=== PATIENT | male | born 1960 | race Caucasian/White ===

== ENCOUNTER 2020-02-25 17:33 | Observation (INO) ==
--- NOTE | 2020-02-25 19:11 | Surgery Consultation ---
Date of Consultation February 25, 2020 Assessment & Plan (1) Acute cholecystitis due to biliary calculus: pt is a 59 year-old male who presents to Er with 4 days history RUQ pain, IMP: acute cholecystitis, cholelithiasis, Plan, I recommend to admit pt to hospital , IV fluid, antibiotic, control pain, go to OR tomorrow, for laparoscopic cholecystectomy, possible open or cholangiogram, D/W benefits, risks and alternatives of the surgery, the risks - infection, bleeding injury CBD, injury other organs,may need ERCP, pt understood, he agrees with the surgery, I answered all questions, D/W ER attending, Present on Admission?: Yes History of Present Illness History of Present Illness CC: RUQ pain HPI History of Present Illness: 59yowm with h/o GERD is seen today for ongoing abdominal pain since Saturday. On 0130 AM Saturday morning, patient woke up with generalized muscle aches with bloating and nausea. He felt sick all night and couldn't get comfortable. He was given an antinausea medication on Saturday morning at [facility] and he started to feel better and by Saturday he started to notice some improvement as far as systemic symptoms and severity of pain is concerned. Nausea started to improve with the anti nausea medication. However he followed with with [facility] yesterday for ongoing abdominal pain which has now localized to the right lower quadrant. Pain is crampy in character and constant. Waxes and wanes from 2-4/10 pain. Associated with loose brown watery stools 2-3x/day. No associated melena or hematochezia. They recommended that he go to ER for evaluation CT scan and he refused, d/t concerns of cost and COVID-19 exposure. As an alternative he called us to see if we could do an outpatient work up. We discussed his diet, he's been trying to eat a bland diet. He's exchanged tea for coffee. On Saturday he limited PO intake, only eating chicken Ramen Noodles. On Saturday, he had some chicken soup. He's been drinking without issues. Yesterday he started eating Cinnamon toast. He's been able to keep this stuff down. No vomiting noted. He denies any fevers, chills, SOB, cough, CP, palpitations, blood in urine or hematuria. I ( Gregory Sinha MD ) got a call for consult acute cholecystitis, I reviewed pt's H/P, labs, CT scan with pt. Allergies Allergy/AdvReac Type Severity Reaction Status Date / Time No Known Drug Allergies Allergy Verified 02/25/20 10:45 [id number] Allergy Unknown Uncoded 02/25/20 10:45 N Allergy Unknown Uncoded 02/25/20 10:45 Home Medications Medication Instructions Recorded Confirmed Type omeprazole 20 mg capsule,delayed 20 mg PO DAILY #30 cap 01/28/20 02/25/20 Rx release famotidine 40 mg tablet 40 mg PO DAILY #90 tab 02/10/20 02/25/20 Rx Patient History Medical History (Updated 02/25/20 @ 19:12 by Gregory Sinha MD) Dyslipidemia GERD (gastroesophageal reflux disease) Health care maintenance Hyperglycemia Sensorineural hearing loss of both ears Tinnitus, bilateral Surgical History No history of previous surgery Family History Uncle Prostate cancer Mother Myocardial infarction Grandmother (Maternal) Myocardial infarction Heart disease Congestive heart disease Sister Ovarian cancer Denies family history of Breast cancer Colorectal cancer Social History Smoking Status: Never smoker Hx Alcohol Use: No Hx Substance Use: No Communication Ability: Effective Visual Impairment: No Limitations Hearing Ability: Normal marital status: Current Living Situation: Spouse current occupational status: employed 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[employer], Feels Safe at Home: Yes Childhood Exposure to Second-Hand Smoke: No Dental Care, Regularly: Yes Physical Activity Frequency: Does not Exercise Seatbelt Use: always Review of Systems Review of Systems: All systems reviewed & are unremarkable except as noted in HPI & below Constitutional: as per Subjective / HPI Eyes: as per Subjective / HPI Ear, Nose, Mouth, Throat: as per Subjective / HPI and + hearing loss Respiratory: as per Subjective / HPI Cardiovascular: as per Subjective / HPI Additional Comments: dyslipidemia Gastrointestinal: as per Subjective / HPI GERD Genitourinary: + as per Subjective / HPI Musculoskeletal: as per Subjective / HPI Integumentary: as per Subjective / HPI Neurologic: as per Subjective / HPI Psychiatric: as per Subjective / HPI Endocrine: as per Subjective / HPI Hematologic / Lymphatic: as per Subjective / HPI Allergy / Immunological: as per Subjective / HPI Physical Exam Constitutional: WD/WN, vitals as above well developed and well nourished Eyes: PERRL, conjunctivae normal, anicteric sclerae ENMT: external ear and nose normal, oropharynx normal Ears: + hearing impairment Neck: trachea midline, no thyromegaly Respiratory: normal respiratory effort, lungs clear to auscultation normal respiratory effort Cardiovascular: RRR, no murmur, no edema Rate/Rhythm: regular rate and regular rhythm Heart Sounds: normal S1 and normal S2 Gastrointestinal (Abdomen): Percussion/Palpation: + abdomen tender and abdomen soft mild tenderness at RUQ, no rebound pain, no distend Musculoskeletal: no cyanosis or clubbing, extremities motor strength 5/5 Skin: no rashes, warm and dry Neurologic: awake Psychiatric: Orientation: alert and oriented x 3 Results & Data ([facility]) Vital Signs (Past 12 Hours) Vital Signs Temp Pulse Resp BP Pulse Ox 02/25/20 17:34 36.9 C 73 16 158/[address] SCAN OF THE ABDOMEN AND PELVIS WITH IV CONTRAST CLINICAL HISTORY: Right lower quadrant abdominal pain. COMPARISON STUDY: No priors. TECHNIQUE: Following the IV administration of 94 cc of Optiray 320, CT scan of the abdomen and pelvis is performed from the lung bases to the proximal femora. Images are reviewed in the axial, sagittal, and coronal planes. IV contrast was administered without complication. A dose lowering technique was utilized adhering to the principles of ALARA. CT DOSE: 1092.58 mGycm FINDINGS: Lung bases: The heart is normal in size and without pericardial effusion. The lung bases are clear noting mild bibasilar atelectasis. There is a small hiatal hernia. Liver: The contrast-enhanced liver is normal in size, contour, and attenuation. There is no intrahepatic biliary ductal dilatation. The hepatic veins and portal veins are patent. Gallbladder: There is a gallstone within the region of the gallbladder neck measuring 2.3 cm. The gallbladder is distended. The gallbladder wall is thickened and edematous and there is pericholecystic inflammation. Findings are consistent with acute cholecystitis. Spleen: Normal in size and attenuation. Pancreas: Unremarkable. Adrenal glands: Unremarkable. Kidneys: The contrast enhanced kidneys are normal in size and without hydronephrosis. The kidneys enhance symmetrically. Scattered subcentimeter cortical hypodensities likely represent cysts but are too small for definitive characterization. Abdominal vasculature: The abdominal aorta is normal in course and caliber noting mild atherosclerotic calcification. Bowel: There is no bowel obstruction. Enteric contrast reaches the rectum. The appendix is well-visualized and normal. Peritoneum: There is no intraperitoneal free air or abdominal ascites. Lymphadenopathy: None. Pelvic viscera: The prostate gland is mildly enlarged and heterogeneous. The bladder is normal as imaged. There is a fat-containing right inguinal hernia. Skeletal structures: No lytic or blastic lesions are seen. IMPRESSION: 1. Cholelithiasis with acute cholecystitis. Surgical assessment is advised. 2. There is no intra or extrahepatic biliary ductal dilatation.
[2020-02-25] MEDS ORDERED: ONDANSETRON INJ 2 MG/ML 2 ML VIAL IV PRN (19:32)
--- NOTE | 2020-02-25 21:41 | Emergency Department Note ---
Impression & Plan Acute cholecystitis due to biliary calculus ED Provider Note INFORMANT: Patient ED PROVIDER(S): Ha Menchaca MD CHIEF COMPLAINT: Abdominal pain PLAN: Disposition: Admitted Condition: Good Outpatient prescription management: none Referral: None MEDICAL DECISION MAKING: Patient presented emergency department with an abnormal CT scan. His GI symptoms resulted in blood work and CT imaging being done today as an outpatient. These did not reveal any abnormal findings in the blood work however his CT imaging was concerning for acute cholecystitis. The patient declined analgesia. A lipase was checked and was normal. Covid testing ordered. He had a consultation placed with Dr. Sinha of general surgery. He was evaluated in the ER by surgery and admission was recommended. The patient was admitted by Dr. Sinha. Triage Nursing notes reviewed and agree them. Prior medical records reviewed regarding his blood work and his outpatient imaging. Vital Signs: reviewed and remarkable for no significant abnormalities Differential diagnosis: Cholecystitis, appendicitis, testicular torsion, infections, diverticulitis, UTI, obstruction, mesenteric ischemia, aortic pathology, inflammatory bowel disease, renal colic, PUD, pancreatitis, biliary pathology, hernia, volvulus, constipation, as well as other pathologies. Diagnostics interpreted by me: Imaging studies: CT scan of the abdomen pelvis was reviewed. Images done reveal a stone in the gallbladder neck as well as pericholecystic inflammation and wall thickening. Concerning for cholecystitis. Consultation(s): General surgery HPI: The patient is a 59 year old male who presents to the Emergency Room with complaints of abdominal pain. This started 4 days ago and is located on the right side. The patient also notes the following associated symptoms, intermittent nausea, postprandial discomfort. The patient has found no relieving factors. Current pain is rated as 3/10. Outpatient imaging was done and it was concerning for cholecystitis. Pt denies LOC, headache, fevers, chills, diaphoresis, visual changes, neck pain, chest pain, breathing difficulties, vomiting, back pain, melena, hematochezia, urinary symptoms, numbness, weakness, lymphadenopathy, rash, or other complaints. ROS: See above HPI for pertinent positives & negatives. A total of 10 systems reviewed and were otherwise negative. PAST MEDICAL HISTORY:See Below , GERD PAST SURGICAL HISTORY:See Below, FAMILY HISTORY:See Below SOCIAL HISTORY:See Below, HOME MEDICATIONS:See Below ALLERGIES:See Below VITALS:See Below PHYSICAL EXAMINATION: GENERAL: Awake, alert, well-appearing, in no distress HENT: Normocephalic, atraumatic. Oropharynx unremarkable. EYES: Normal conjunctiva. Sclera non-icteric. NECK: Inspection normal. Non-tender. Supple. No nuchal rigidity. FROM. No masses. RESPIRATORY: Clear to auscultation. No wheezes. No rales. Normal respiratory effort. CARDIAC: Normal rate. Normal rhythm. No murmurs. No rubs. Extremities warm and well perfused. Pulses equal. No JVD. GI: Soft, non-distended. Right upper quadrant tenderness to palpation. Positive Tracey sign. No rebound or guarding. No masses. RECTAL: Deferred. MUSCULOSKELETAL: Atraumatic. Chest examination reveals no tenderness. The back is symmetrical on inspection without obvious abnormality. There is no CVA tenderness to palpation. No joint edema. LOWER EXTREMITIES: Calves are equal size bilaterally and non-tender. No edema. No discoloration. NEURO: Normal sensorium. No sensory or motor deficits noted. SKIN: No rash or jaundice noted. Ha Menchaca MD Past Med/Surg History Medical History (Updated 02/25/20 @ 21:38 by Ha Menchaca MD) Dyslipidemia GERD (gastroesophageal reflux disease) Health care maintenance Hyperglycemia Sensorineural hearing loss of both ears Tinnitus, bilateral Surgical History No history of previous surgery Family History Uncle Prostate cancer Mother Myocardial infarction Grandmother (Maternal) Myocardial infarction Heart disease Congestive heart disease Sister Ovarian cancer Denies family history of Breast cancer Colorectal cancer Social History Smoking Status: Never smoker Hx Alcohol Use: No Hx Substance Use: No Communication Ability: Effective Visual Impairment: No Limitations Hearing Ability: Normal marital status: Current Living Situation: Spouse current occupational status: 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 Verified 02/25/20 19:28 [id number] Allergy Unknown . Uncoded 02/25/20 19:28 Home Meds Home Medications Medication Instructions Recorded Confirmed famotidine 40 mg PO HS 02/25/20 02/25/20 omeprazole 20 mg PO QAM 02/25/20 02/25/20 Results & Data (ED) Vital Signs Vital Signs - 24 hr 02/25/20 17:34 Temperature 36.9 C Temperature Source Skin Pulse Rate 73 Respiratory Rate 16 Blood Pressure 158/84 H Blood Pressure Mean 108 Pulse Oximetry 98 Oxygen Delivery Method Room Air Sepsis Recent Fever Within 48 Hours No Sepsis New/Unexplained Change in Mental Status N/A Sepsis Action Taken by Nursing No Action Required Laboratory Data Lab Results 02/25/20 02/25/20 02/25/20 Range/Units 18:42 Unknown Unknown Lipase 93 (73-393) U/L COVID-19 Eval Order Covid19 [facility]Now [facility] SARS-CoV-2, RNA, NAAT NEGATIVE (NEGATIVE) Discharge Plan Visit Data Chief Complaint: Abdominal Pain Stated Complaint: ABDOMINAL PAIN ED Provider: Ha Menchaca Discharge Problem: Acute cholecystitis due to biliary calculus Patient Disposition: Admitted As Inpatient Discharge Instructions Interventions: ED Discharge Assessment Last Done: 02/25/20 20:41 Forms Stand Alone Forms: [facility] Prescriptions Prescriptions: No Action famotidine 40 mg tablet 40 mg PO HS RF: 0 omeprazole 20 mg capsule,delayed release(DR/EC) 20 mg PO QAM RF: 0 Referrals Referrals: Pro,Dominic Sawant MD [Primary Care Provider] -
[2020-02-25] MEDS ORDERED: HYDROmorphone INJ 0.5 MG/0.5 ML SYR IV PRN (21:53)
[2020-02-25] MEDS ORDERED: oxyCODONE/ACETAMINOPHEN 5mg/325mg TAB PO PRN (21:53)
[2020-02-25] MEDS ORDERED: PIPERACILL/TAZOBAC CONSULT ACTIVE PRN (21:53)
[2020-02-25] MEDS: FAMOTIDINE 40 MG TABLET PO SCH (22:04)
[2020-02-25] MEDS ORDERED: PIPERACILLIN/TAZOBACTAM 4.5 GM in DEXTROSE 5% 100 ML IV ONE (22:15)
[2020-02-25 22:49] LABS: Basophils # (auto) 0.02 K/uL (0-0.2); Basophils % (auto) 0.3 %; Eosinophils # (auto) 0.21 K/uL (0-0.5); Eosinophils % (auto) 2.6 %; Hematocrit (blood only) 39.4 % (42-52); Hemoglobin 13.1 g/dL (14.0-18.0); Immature Granulocytes # (auto) 0.04 K/uL (0.00-0.02); Immature Granulocytes % (auto) 0.5 %; Lymphocytes # (auto) 2.92 K/uL (1.2-3.4); Lymphocytes % (auto) 36.5 %; Mean Corpuscular Hemoglobin 28.7 pg (25-34); Mean Corpuscular Hgb Conc 33.2 g/dL (32-36); Mean Corpuscular Volume 86.2 fL (80-100); Mean Platelet Volume 9.9 fL (7.4-10.4); Monocytes # (auto) 0.56 K/uL (0.11-0.59); Neutrophils # (auto) 4.24 K/uL (1.4-6.5); Neutrophils % (auto) 53.1 %; Platelet Count 236 K/uL (130-400); RDW Coefficient of Variation 14.1 % (11.5-14.5); RDW Standard Deviation 44.4 fL (36.4-46.3); Red Blood Count 4.57 M/uL (4.7-6.1); White Blood Count 7.99 K/uL (4.8-10.8)
[2020-02-25] MEDS: LACTATED RINGER'S 1,000 ML IV SCH (23:09)
[2020-02-25 23:13] LABS: Albumin Level 3.5 gm/dl (3.4-5.0); BUN Creatinine Ratio 15.1 (10-20); Bilirubin,Total 0.6 mg/dl (0.2-1); Creatinine Clr Calc Pharmacy 117.4 ml/min; Est GFR (African American) 109.7; Est GFR (Non-African American) 94.7; Globulin 3.6 gm/dl (2.5-4.0); Potassium 3.5 mmol/L (3.5-5.1); Total Protein 7.1 gm/dl (6.4-8.2)
[2020-02-26] MEDS: PIPERACILLIN/TAZOBACTAM 4.5 GM in DEXTROSE 5% 100 ML IV SCH ×3 (02:15→17:40)
[2020-02-26 06:18] LABS: Basophils # (auto) 0.04 K/uL (0-0.2); Basophils % (auto) 0.5 %; Eosinophils # (auto) 0.26 K/uL (0-0.5); Eosinophils % (auto) 3.4 %; Hematocrit (blood only) 42.6 % (42-52); Hemoglobin 13.9 g/dL (14.0-18.0); Immature Granulocytes # (auto) 0.02 K/uL (0.00-0.02); Immature Granulocytes % (auto) 0.3 %; Lymphocytes # (auto) 2.31 K/uL (1.2-3.4); Lymphocytes % (auto) 30.5 %; Mean Corpuscular Hemoglobin 28.7 pg (25-34); Mean Corpuscular Hgb Conc 32.6 g/dL (32-36); Mean Corpuscular Volume 87.8 fL (80-100); Mean Platelet Volume 9.9 fL (7.4-10.4); Monocytes # (auto) 0.66 K/uL (0.11-0.59); Monocytes % (auto) 8.7 %; Neutrophils # (auto) 4.29 K/uL (1.4-6.5); Neutrophils % (auto) 56.6 %; Platelet Count 257 K/uL (130-400); RDW Coefficient of Variation 14.2 % (11.5-14.5); RDW Standard Deviation 45.9 fL (36.4-46.3); Red Blood Count 4.85 M/uL (4.7-6.1); White Blood Count 7.58 K/uL (4.8-10.8)
[2020-02-26 06:52] LABS: Albumin Level 3.5 gm/dl (3.4-5.0); BUN Creatinine Ratio 11.5 (10-20); Creatinine Clr Calc Pharmacy 97.5 ml/min; Est GFR (African American) 89.2; Potassium 3.8 mmol/L (3.5-5.1)
[2020-02-26 06:55] LABS: Albumin Globulin Ratio 0.8 (0.9-2); Bilirubin,Total 0.9 mg/dl (0.2-1); Globulin 4.1 gm/dl (2.5-4.0); Total Protein 7.6 gm/dl (6.4-8.2)
[2020-02-26] MEDS: PANTOprazole 40 MG TAB PO SCH (07:50)
--- NOTE | 2020-02-26 08:42 | Anesthesiology Consultation ---
Date of Service February 26, 2020 Covid 19 negative on 02/25/20. Assessment & Plan (1) Encounter for pre-operative examination: Chart Review Chart Review: Acceptable Risk for Surgery and Patient NOT seen in Pre Admission Testing Consults Requested none History Surgery Operation Date: 02/26/20 09:00 Proposed Procedures p Laparoscopic Cholecystectomy - Gregory Sinha MD Height/Weight Height: 5 ft 11 in Weight: 113.852 kg Allergies Allergy/AdvReac Type Severity Reaction Status Date / Time No Known Drug Allergies Allergy . Verified 02/25/20 19:28 [id number] Allergy Unknown . Uncoded 02/25/20 19:28 Medications Home Medications Medication Instructions Recorded Confirmed Last Taken famotidine 40 mg PO HS 02/25/20 02/25/20 02/24/20 omeprazole 20 mg PO QAM 02/25/20 02/25/20 02/25/20 Active Medications Generic Name Dose Route Start Last Admin Trade Name Freq PRN Reason Stop Dose Admin Famotidine 40 mg 02/25/20 21:53 02/25/20 22:04 Famotidine 40 Mg Tablet PO 03/26/20 21:52 Not Given HS BRIDGET Lactated Ringer's 1,000 mls @ 80 mls/hr 02/25/20 21:53 02/25/20 23:09 Lr IV 03/26/20 21:52 80 mls/hr .[id number] BRIDGET Administration Piperacillin Sod/Tazobactam 120 mls @ 30 mls/hr 02/26/20 02:00 02/26/20 09:03 Sod 4.5 gm/ Dextrose IV 03/07/20 01:59 30 mls/hr Q8H BRIDGET Administration Protocol Pantoprazole Sodium 40 mg 02/26/20 09:00 02/26/20 07:50 Pantoprazole 40 Mg Tab PO 03/27/20 08:59 Not Given QAM BRIDGET NPO Date Last Intake of Fluids: 02/25/20 Date Last Intake of Solids: 02/25/20 Past Medical History Medical History Dyslipidemia GERD (gastroesophageal reflux disease) Health care maintenance Hyperglycemia Sensorineural hearing loss of both ears Tinnitus, bilateral Past Family History Family History Uncle Prostate cancer Mother Myocardial infarction Grandmother (Maternal) Myocardial infarction Heart disease Congestive heart disease Sister Ovarian cancer Denies family history of Breast cancer Colorectal cancer Past Surgical History Surgical History No history of previous surgery Social History Smoking Status: Never smoker Hx Alcohol Use: No Hx Substance Use: No Physical Exam Vital Signs Last Vital Signs Temp 36.7 C 02/26/20 07:14 Pulse 62 02/26/20 07:14 Resp 16 02/26/20 07:14 BP 125/77 02/26/20 07:14 Pulse Ox 97 02/26/20 07:14 Testing Laboratory Results 02/26/20 05:53 02/26/20 05:53 Electrocardiogram Date: 02/26/20 Findings: + NSR @ (69), + LVH and + RBBB (incomplete) Other Testing CT SCAN OF THE ABDOMEN AND PELVIS WITH IV CONTRAST CLINICAL HISTORY: Right lower quadrant abdominal pain. COMPARISON STUDY: No priors. TECHNIQUE: Following the IV administration of 94 cc of Optiray 320, CT scan of the abdomen and pelvis is performed from the lung bases to the proximal femora. Images are reviewed in the axial, sagittal, and coronal planes. IV contrast was administered without complication. A dose lowering technique was utilized adhe ring to the principles of ALARA. CT DOSE: 1092.58 mGycm FINDINGS: Lung bases: The heart is normal in size and without pericardial effusion. The lung bases are clear noting mild bibasilar atelectasis. There is a small hiatal hernia. Liver: The contrast-enhanced liver is normal in size, contour, and attenuation. There is no intrahepatic biliary ductal dilatation. The hepatic veins and portal veins are patent. Gallbladder: There is a gallstone within the region of the gallbladder neck measuring 2.3 cm. The gallbladder is distended. The gallbladder wall is thickened and edematous and there is pericholecystic inflammation. Findings are consistent with acute cholecystitis. Spleen: Normal in size and attenuation. Pancreas: Unremarkable. Adrenal glands: Unremarkable. Kidneys: The contrast enhanced kidneys are normal in size and without hydronephrosis. The kidneys enhance symmetrically. Scattered subcentimeter cortical hypodensities likely represent cysts but are too small for definitive characterization. Abdominal vasculature: The abdominal aorta is normal in course and caliber not ing mild atherosclerotic calcification. Bowel: There is no bowel obstruction. Enteric contrast reaches the rectum. The appendix is well-visualized and normal. Peritoneum: There is no intraperitoneal free air or abdominal ascites. Lymphadenopathy: None. Pelvic viscera: The prostate gland is mildly enlarged and heterogeneous. The bladder is normal as imaged. There is a fat-containing right inguinal hernia. Skeletal structures: No lytic or blastic lesions are seen. IMPRESSION: 1. Cholelithiasis with acute cholecystitis. Surgical assessment is advised. 2. There is no intra or extrahepatic biliary ductal dilatation. ACT 112: Negative or not required by law. Electronically signed by: Johnny Moreno M.D. 02/25/2020 5:20 PM Dictated: 02/25/20 1717
[2020-02-26] MEDS ORDERED: GLYCOPYRROLATE 0.2 MG/ML VIAL ONE ×2 (09:56→13:05)
[2020-02-26] MEDS ORDERED: LIDOCAINE 2% 2 ML VIAL/AMP(20MG/ML) INFIL ONE (09:56)
[2020-02-26] MEDS ORDERED: NEOSTIGMINE METHYLSULFATE 5 MG/5 ML SYR ONE (09:56)
[2020-02-26] MEDS ORDERED: ONDANSETRON INJ 2 MG/ML 2 ML VIAL ONE (09:56)
[2020-02-26] MEDS ORDERED: DEXAMETHASONE SOD INJ 4 MG/ML VIAL ONE (09:56)
[2020-02-26] MEDS ORDERED: fentaNYL citrate 100 MCG/2 ML VIAL ONE ×2 (09:56→11:48)
[2020-02-26] MEDS ORDERED: PROPOFOL IV EMULSION 10 MG/ML 20 ML VIAL IV ONE (09:56)
[2020-02-26] MEDS ORDERED: MIDAZOLAM HCL 1 MG/ML 2ML VIAL ONE (09:57)
[2020-02-26] MEDS ORDERED: ceFAZolin 2000MG 2,000 MG/15 ML SYR IV SCH (10:00)
--- NOTE | 2020-02-26 10:03 | History & Physical Bridge Note ---
Date of Service February 26, 2020 History & Physical Bridge Note I have examined the patient, reviewed the History & Physical and in the interval since the performance of the History & Physical I have noted the following changes of clinical significance: no changes noted
[2020-02-26] MEDS ORDERED: LARYING-O-JET KIT (LTA) ONE (11:01)
[2020-02-26] MEDS ORDERED: ROCURONIUM BROMIDE 10 MG/ML 5 ML VIAL IV ONE ×2 (11:01→12:22)
[2020-02-26] MEDS ORDERED: LIDOCAINE 1% LOCAL 20 ML VIAL ONE (11:03)
[2020-02-26] MEDS ORDERED: BUPIVACAINE 0.5 % 5 MG/1 ML MPF 30ML VIAL ONE (11:03)
[2020-02-26] MEDS ORDERED: HYDROmorphone INJ 1 MG/ML SYRINGE IV PRN (11:15)
[2020-02-26] MEDS ORDERED: ATROPINE SULFATE 0.1 MG/ML 10ML SYR IV PRN (11:15)
[2020-02-26] MEDS ORDERED: ONDANSETRON INJ 2 MG/ML 2 ML VIAL IV PRN (11:15)
[2020-02-26] MEDS ORDERED: ePHEDrine sulfate 50 MG/ML AMP IV PRN (11:15)
--- NOTE | 2020-02-26 12:10 | Electrocardiogram Report ---
Test Reason : Blood Pressure : / mmHG Vent. Rate : 069 BPM Atrial Rate : 069 BPM P-R Int : 176 ms QRS Dur : 110 ms QT Int : 422 ms P-R-T Axes : 017 -31 001 degrees QTc Int : 452 ms Normal sinus rhythm Left axis deviation Incomplete right bundle branch block Moderate voltage criteria for LVH, may be normal variant Abnormal ECG No previous ECGs available Confirmed by Dominic Murillo ([id number]) on 02/26/2020 12:10:17 PM Referred By: REFERRED SELF Confirmed By:Dominic Murillo
[2020-02-26] MEDS ORDERED: KETOROLAC 30 MG/ML VIAL ONE (13:08)
--- NOTE | 2020-02-26 13:10 | Post Operative Brief Note ---
Immediate Post Op Note v1 Date of Surgery February 26, 2020 Pre & Post Diagnosis Operation Date: 02/26/20 09:00 Pre-Op Diagnosis: Cholelithiasis with acute cholecystitis Post-Op Diagnosis: Cholelithiasis with acute cholecystitis I identified the patient and participated in the time-out.: Yes Procedure Operation Date: 02/26/20 09:00 Actual Procedures p Laparoscopic Cholecystectomy - Gregory Sinha MD Surgeon Gregory Sinha MD [employer] Template [employer] ARMANDO Fletcher Estimated Blood Loss 20 Findings Consistent with Post-Op Diagnosis significant inflammation on gallbladder wall, Fluids 800ml Specimens gallbladder Anesthesia Type General Complications none Disposition Accompanied Patient To Recovery: Yes Disposition: Recovery Room Overlapping Procedure I was immediately available: during the entire case.
[2020-02-26] MEDS ORDERED: BACITRACIN OINT 15 GM TUBE ONE (13:14)
--- NOTE | 2020-02-26 13:41 | Operative Report (OR) ---
DATE OF OPERATION: 02/26/2020 PREOPERATIVE DIAGNOSES: Acute cholecystitis, cholelithiasis. POSTOPERATIVE DIAGNOSES: Acute cholecystitis, cholelithiasis. OPERATION: Laparoscopic cholecystectomy. SURGEON: Gregory Sinha MD. ANESTHESIA: General. ESTIMATED BLOOD LOSS: About 20 mL. REGIONAL SALES MANAGER: Hilda Faith PA-C. FINDINGS: Significant inflammation on the gallbladder wall, diagnosis of acute cholecystitis with cholelithiasis. COMPLICATIONS: None. INDICATIONS FOR THE PROCEDURE: This is a 59-year-old gentleman who was admitted to the hospital for acute cholecystitis with cholelithiasis. I recommended to do the laparoscopic cholecystectomy, possible open, possible cholangiogram. I did talk to the patient about the benefit, the risk, alternate procedure. I indicated the risks may include but not limited to such as bleeding, infection, injury to common bile duct, bile leak, may need ERCP, injury to the bowel, incisional hernia. The patient understands. He signed informed consent and I answered all questions. DETAILS OF PROCEDURE: We brought the patient to the OR, put the patient in the supine position. The patient received 3.375 grams of Zosyn IV for prophylactic antibiotic and the patient received general anesthesia without difficulty. The abdomen was prepped and draped in routine sterile fashion. After timeout, I injected the local anesthesia by using 1% lidocaine mixed with 0.5% Marcaine just above the umbilicus. Then I made a small incision just above the umbilicus, opened fascia and opened peritoneum under direct vision, put a Raghav trocar in, connected to CO2 to create pneumoperitoneum, flow rate at 6 liters per minute, pressure not more than 14 mmHg. Once we got a nice pneumoperitoneum, we put the camera in, looked around the abdomen, shows normal finding on the liver. However, the gallbladder had significant inflammation with omental adhesions to the gallbladder, gallbladder wall thickening and edema, also confirmed the diagnosis of acute cholecystitis. Then, we put another two 5 mm trocars in the right upper quadrant, one 12 trocar in the epigastric area. Once all trocars in, we had to use a large needle to decompress the gallbladder first and then we used another grasper to hold the base of gallbladder, put in the direction to the diaphragm and then we peeled down the omental adhesions to the gallbladder. Then, we used another grasper to hold the pouch of gallbladder, put lateral to expose the triangle of Calot. Cystic duct was identified and mobilized. Then I put two 10 mm metal clips on the proximal cystic duct, one on the distal cystic duct. I then used a scissor for transection of cystic duct. Rechecked, no active bleeding, no bile leak. Then we also identified the cystic artery, then I put two 10 mm metal clips on the proximal cystic artery, one on the distal cystic artery and then used scissors for transection of cystic artery. Rechecked, no active bleeding. Then we used the Bovie to take down gallbladder from the liver bed. Rechecked, no active bleeding, no bile leak from the liver bed. Then we removed the gallbladder through the catch bag. Then, we reinserted the Raghav trocar in, connected to CO2 to create pneumoperitoneum, again looked around the abdomen, no active bleeding, no bile leak from the liver bed. Then we removed all trocars under direct vision. No active bleeding from the trocar sites. Pneumoperitoneum was released, now closed the umbilical incision, fascial layer by using 0 Vicryl [id number] x2, closed subcutaneous layer by using 2-0 Vicryl interruptedly, closed skin by using 4-0 Vicryl continuous running, closed the 12 trocar in the epigastric area incision fascial layer by using 0 Vicryl [id number] x2, closed subcutaneous layer by using 2-0 Vicryl interruptedly, closed skin by using 4-0 Vicryl interruptedly, closed another two 5 mm trocar site skin only by using 4-0 Vicryl. Then, we put the dressing on. The patient tolerated the procedure well. All instrument, needle and sponge counts were correct x2 at the end of the case. The patient was transferred to recovery room in stable condition. The specimen was sent to pathology. The political science research assistant is necessary for hold camera, and retraction for this surgery. After the procedure, I did talk to the patient about the OR finding and the procedure we did. Also, we instructed the patient to stay in the hospital overnight. The patient understands. I attest to the content of the Intraoperative Record and any orders documented therein. Any exceptions are noted below. MERY
[2020-02-26] MEDS: fentaNYL citrate 100 MCG/2 ML VIAL IV PRN ×2 (14:10→14:15)
--- NOTE | 2020-02-26 14:19 | Anesthesiology Progress Note ---
Date of Service February 26, 2020 Anesthesia Post Procedure Vital Signs Vital Signs: Temp Pulse Pulse Pulse Resp BP BP 02/26/20 14:10 61 12 129/81 02/26/20 14:00 71 19 135/81 02/26/20 13:50 65 21 135/80 02/26/20 13:41 36.3 C L 80 13 135/84 02/26/20 10:07 37.3 C 67 20 02/26/20 07:14 36.7 C 62 16 02/25/20 23:09 36.6 C 66 14 02/25/20 21:45 36.6 C 67 18 02/25/20 17:34 36.9 C 73 16 158/84 H BP Pulse Ox 02/26/20 14:10 94 02/26/20 14:00 97 02/26/20 13:50 98 02/26/20 13:41 93 02/26/20 10:07 147/76 H 97 02/26/20 07:14 125/77 97 02/25/20 23:09 117/68 95 02/25/20 21:45 143/81 H 98 02/25/20 17:34 98 Pain Intensity Abdomen: Pain Intensity: 6 Transfer of Care Handoff Completed per policy Notes Mental Status: alert / awake / arousable and participated in evaluation Patient Amnestic to Procedure: Yes Nausea / Vomiting: adequately controlled Pain: improving with treatment Airway Patency, RR, SpO2: stable & adequate BP & HR: stable & adequate Hydration State: stable & adequate Anesthetic Complications: no major complications apparent and Pt Satisfied with anesthetic care
[2020-02-26] MEDS ORDERED: ACETAMINOPHEN 325 MG TAB PO PRN (15:22)
[2020-02-26] MEDS: LACTATED RINGER'S 1,000 ML IV SCH (16:41)
[2020-02-26] MEDS: FAMOTIDINE 40 MG TABLET PO SCH (21:00)
[2020-02-27] MEDS: PIPERACILLIN/TAZOBACTAM 4.5 GM in DEXTROSE 5% 100 ML IV SCH (01:54)
[2020-02-27] MEDS: LACTATED RINGER'S 1,000 ML IV SCH ×2 (01:54→05:11)
[2020-02-27 08:10] VITALS: BP 126/75; PULSE 58; TEMP 97.7; O2SAT 98
[2020-02-27] MEDS: PANTOprazole 40 MG TAB PO SCH (08:32)
[2020-02-27 08:33] LABS: Basophils # (auto) 0.01 K/uL (0-0.2); Basophils % (auto) 0.1 %; Eosinophils # (auto) 0.04 K/uL (0-0.5); Eosinophils % (auto) 0.4 %; Hematocrit (blood only) 40.2 % (42-52); Immature Granulocytes # (auto) 0.03 K/uL (0.00-0.02); Immature Granulocytes % (auto) 0.3 %; Lymphocytes # (auto) 1.89 K/uL (1.2-3.4); Mean Corpuscular Hemoglobin 28.6 pg (25-34); Mean Corpuscular Hgb Conc 32.3 g/dL (32-36); Mean Corpuscular Volume 88.5 fL (80-100); Mean Platelet Volume 9.9 fL (7.4-10.4); Monocytes # (auto) 0.89 K/uL (0.11-0.59); Monocytes % (auto) 8.5 %; Neutrophils # (auto) 7.62 K/uL (1.4-6.5); Neutrophils % (auto) 72.7 %; Platelet Count 227 K/uL (130-400); RDW Coefficient of Variation 14.3 % (11.5-14.5); RDW Standard Deviation 46.3 fL (36.4-46.3); Red Blood Count 4.54 M/uL (4.7-6.1); White Blood Count 10.48 K/uL (4.8-10.8)
[2020-02-27] MEDS ORDERED: IBUPROFEN 600 MG TAB PO PRN (09:04)
--- NOTE | 2020-02-27 09:06 | Surgery Progress Note ---
Date of Service February 27, 2020 Assessment & Plan (1) Acute cholecystitis due to biliary calculus: advance diet d/c if tolerates diet and pending [facility] Admission and Anticipated Discharge Date Admission Date: February 25, 2020 Supervising Physician Co-Signing Physician Notes Patient seen and examined, labs reviewed, agree with above. Postop day #[address] Sinha. Feels some lower abdominal discomfort this morning, tolerated eggs for breakfast. Symptoms are marginally improved from yesterday. On exam he is afebrile with stable vitals, incisions healing well with no evidence of infection. Abdomen soft, moderately distended, appropriately tender to palpation. Labs unremarkable. We will see how he does with lunch, likely discharge this afternoon with follow-up with Dr. Sinha in the clinic. Wound care instructions and activity restrictions reviewed, return precautions given. Subjective on clears, taking Percocet at night, no nausea Physical Exam Gastrointestinal (Abdomen): Inspection/Auscultation: + abdominal surgical incision (dry) Percussion/Palpation: abdomen soft Results & Data ([facility]) Vital Signs (Past 12 Hours) Vital Signs Temp Pulse Resp BP Pulse Ox Pulse Ox 02/27/20 08:09 36.5 C 58 L 20 126/75 98 02/26/20 23:48 36.8 C 77 16 131/69 92 02/26/20 21:30 92 PG Care Time/CCT Total # of Minutes Spent Total Time Spent with Patient: Total time spent is greater than 50% in coordination of care (as documented) at patient's floor/unit and/or counseling patient: Coding Level of Care Code 80293 Subseq Hosp Care Lvl 1 Diagnoses Acute cholecystitis due to biliary calculus K80.00
[2020-02-27 09:13] LABS: Albumin Level 3.3 gm/dl (3.4-5.0); BUN Creatinine Ratio 11.7 (10-20); Creatinine Clr Calc Pharmacy 106.5 ml/min; Est GFR (African American) 99.3; Est GFR (Non-African American) 85.7; Potassium 3.9 mmol/L (3.5-5.1)
[2020-02-27 09:14] LABS: Albumin Globulin Ratio 0.9 (0.9-2); Bilirubin,Total 0.5 mg/dl (0.2-1); Globulin 3.7 gm/dl (2.5-4.0)
--- NOTE | 2020-02-29 09:44 | Discharge Summary (DS) ---
ADMITTING DIAGNOSES: Acute cholecystitis, cholelithiasis, anemia. DISCHARGE DIAGNOSES: Acute cholecystitis, cholelithiasis, anemia. OPERATION: Laparoscopic cholecystectomy. SURGEON: Gregory Sinha MD. DETAILS OF DISCHARGE SUMMARY: This is a 59-year-old gentleman who presented to the ED with acute abdominal pain. The patient had a CT scan diagnosis of acute cholecystitis. We admitted the patient to the hospital overnight, then we took the patient to the OR and we did a laparoscopic cholecystectomy on 02/26/2020 and the patient tolerated the procedure well. After procedure, the patient transferred to recovery room and later on transferred to regular floor. The patient is doing fine and he tolerates a diet. PHYSICAL EXAMINATION: VITAL SIGNS: Temperature is 36.5, respiratory rate 20, heart rate is 62, blood pressure 126/75. O2 saturation 98% on room air. GENERAL: The patient is alert, awake, oriented x3. HEENT: With normal limitation. NEUROLOGIC: Intact. NECK: No JVD. CHEST: Bilateral lung sounds clear. HEART: Normal S1 and S2. No murmur. ABDOMEN: Soft, no significant tenderness. All incisions intact. No drainage, no redness. No distention. EXTREMITIES: No edema. PLAN: The patient wanted to go home. We gave the patient postop care instruction. The patient understands. I will follow outpatient in 2 weeks in my office.
== END 2020-02-27 11:44 | disposition home or self-care (01) ==
LOC: ED 17:33 → 3N 17:33